=== PATIENT | female | born 1995 | race Caucasian/White ===

== ENCOUNTER 2020-02-02 13:55 | Emergency (ER) | payer SELFPAY ==
[~2020-02-02] VITALS: Ht 170.2 cm; Wt 60.8 kg
[2020-02-02 14:01] VITALS: BP 124/78
--- NOTE | 2020-02-02 14:06 | NUR ---
24/F c/o RLQ, LLQ, THEN RADIATING UP TO EPIGASTRIUM X 3 DAYS WITH N/V. ALSO PAIN IN MID BACK BILATERALLY. DENIES DIARRHEA. LBM TODAY, NORMAL CONSISTENCY BUT STATES WAS CONSTIPATED PRIOR TO BM TODAY. DENIES FEVER. PAIN 8/10, BLOATING SENSATION medhx: asthma
--- NOTE | 2020-02-02 14:10 | NUR ---
DR. GARCIA EVALUATING PT AT BEDSIDE
[2020-02-02] MEDS ORDERED: ONDANSETRON 4 MG/2 ML VIAL IVP ONE (14:25)
[2020-02-02] MEDS ORDERED: MORPHINE SULFATE 4 MG/ML SYR IVP ONE (14:25)
[2020-02-02 14:35] LABS: BASOPHILS % (AUTO) 0.4 % (0.0-2.0); EOSINOPHILS % (AUTO) 0.1 % (0.0-4.0); HEMATOCRIT 39.8 % (36-48); HEMOGLOBIN 12.9 g/dL (12.0-16.0); LYMPHOCYTES # (AUTO) 1.9 K/uL (2.5-16.5); LYMPHOCYTES % (AUTO) 14.8 % (20.5-51.1); MEAN CORPUSCULAR HEMOGLOBIN 30 pg (27-31); MEAN CORPUSCULAR HGB CONC 33 g/dL (33-37); MEAN CORPUSCULAR VOLUME 90.8 fL (80-94); MONOCYTES # (AUTO) 1.1 K/uL (0.8-1.0); MONOCYTES % (AUTO) 8.5 % (1.7-9.3); NEUTROPHILS # (AUTO) 9.7 K/uL (1.8-7.7); NEUTROPHILS % (AUTO) 76.2 % (42.2-75.2); PLATELET COUNT (AUTO) 242 K/uL (140-450); RED BLOOD CELL COUNT(AUTO) 4.38 MIL/uL (4.20-5.40); RED CELL DISTRIBUTION WIDTH 12.5 % (11.6-13.7); WHITE BLOOD COUNT (AUTO) 12.7 K/uL (4.8-10.8)
[2020-02-02 14:55] LABS: ALBUMIN 4.5 g/dL (3.4-5.0); ANION GAP 16.6 (8-16); CARBON DIOXIDE 25.1 mmol/L (21-32); CREATININE 0.8 mg/dL (0.6-1.3); POTASSIUM 3.7 mmol/L (3.5-5.1); TOTAL BILIRUBIN 1.3 mg/dL (0.0-1.0)
--- NOTE | 2020-02-02 15:08 | NUR ---
PT BACK TO BED 04 VIA W/C FROM CT SCAN
--- NOTE | 2020-02-02 16:09 | NUR ---
DR. GARCIA SPEAKING W/ PT AT BEDSIDE
[2020-02-02 16:18] VITALS: BP 111/81
--- NOTE | 2020-02-02 16:18 | NUR ---
Patient discharged with v/s stable. Written and verbal after care instructions given and explained. Patient alert, oriented and verbalized understanding of instructions. Ambulatory with steady gait. All questions addressed prior to discharge. ID band removed. Patient advised to follow up with PMD. Rx of Miralax Powder given. Patient educated on indication of medication including possible reaction and side effects. Opportunity to ask questions provided and answered.
== END 2020-02-02 16:18 | disposition home or self-care (01) ==
LOC: MED 13:55
DX: K59.00 Constipation, unspecified (principal)
CPT/HCPCS: 36415; 74176; 80053; 81002; 81025; 83690; 85025; 96374; 96375; 99284; J2270; J2405

== ENCOUNTER 2020-07-18 11:05 | Emergency (ER) | payer SELFPAY ==
[~2020-07-18] VITALS: Ht 170.2 cm; Wt 63.5 kg
[2020-07-18 11:08] VITALS: BP 113/73
--- NOTE | 2020-07-18 11:11 | NUR ---
Patient given urine cup and ambulated to lobby
[2020-07-18 11:50] LABS: BASOPHILS # (AUTO) 0.1 K/uL (0.00-0.22); BASOPHILS % (AUTO) 0.8 % (0.0-2.0); EOSINOPHILS # (AUTO) 0.1 K/uL (0-0.4); EOSINOPHILS % (AUTO) 0.5 % (0.0-4.0); HEMATOCRIT 38.5 % (36-48); HEMOGLOBIN 12.9 g/dL (12.0-16.0); LYMPHOCYTES # (AUTO) 1.7 K/uL (2.5-16.5); LYMPHOCYTES % (AUTO) 17.4 % (20.5-51.1); MEAN CORPUSCULAR HEMOGLOBIN 30 pg (27-31); MEAN CORPUSCULAR HGB CONC 34 g/dL (33-37); MEAN CORPUSCULAR VOLUME 88.4 fL (80-94); MONOCYTES # (AUTO) 0.5 K/uL (0.8-1.0); MONOCYTES % (AUTO) 5.3 % (1.7-9.3); NEUTROPHILS # (AUTO) 7.3 K/uL (1.8-7.7); PLATELET COUNT (AUTO) 247 K/uL (140-450); RED BLOOD CELL COUNT(AUTO) 4.36 MIL/uL (4.20-5.40); RED CELL DISTRIBUTION WIDTH 12.4 % (11.6-13.7); WHITE BLOOD COUNT (AUTO) 9.6 K/uL (4.8-10.8)
[2020-07-18 11:59] LABS: CREATININE 0.6 mg/dL (0.6-1.3); POTASSIUM 4.1 mmol/L (3.5-5.1)
[2020-07-18 12:40] LABS: ANION GAP 16.1 (8-16)
--- NOTE | 2020-07-18 13:02 | NUR ---
PT TAKEN TO BED 11.
[2020-07-18 13:14] LABS: APPEARANCE,URINE CLEAR (CLEAR); BILIRUBIN,URINE NEGATIVE (NEGATIVE); BLOOD, URINE NEGATIVE (NEGATIVE); COLOR,URINE YELLOW (YELLOW); LEUKOCYTE ESTERASE ,URINE NEGATIVE (NEGATIVE); NITRITE, URINE NEGATIVE (NEGATIVE); UGLUCOSE NEGATIVE (NEGATIVE)
[2020-07-18] MEDS: NACL 0.9% 1,000 ML IV ONE (13:14)
--- NOTE | 2020-07-18 13:24 | NUR ---
Received care of pt @1302 c/o cramp-like abdominal pain with nausea & vomiting x 2 days, with no PMH, NKA, 6 weeks IUP.
[2020-07-18 14:49] VITALS: BP 113/73
--- NOTE | 2020-07-18 14:50 | NUR ---
Patient discharged with v/s stable. Written and verbal after care instructions given and explained. Patient verbalized understanding. Ambulatory with steady gait. All questions addressed prior to discharge. Advised to follow up with PMD.
--- NOTE | 2020-07-20 08:46 | NUR ---
LATE ENTRY -- NORMAL SALINE INFUSION COMPLETED AT 1414
== END 2020-07-18 14:50 | disposition home or self-care (01) ==
LOC: MED 11:05
DX: O99.611 Diseases of the digestive system complicating pregnancy, first trimester (principal); O21.9 Vomiting of pregnancy, unspecified; K92.9 Disease of digestive system, unspecified; Z3A.08 8 weeks gestation of pregnancy; J45.909 Unspecified asthma, uncomplicated
CPT/HCPCS: 36415; 76801; 80048; 81003; 81025; 84702; 85025; 86900; 86901; 96360; 99284; J7030

== ENCOUNTER 2020-07-22 11:25 | Emergency (ER) | payer MEDICAID ==
[~2020-07-22] VITALS: Ht 165.1 cm; Wt 62.6 kg
[2020-07-22 11:29] VITALS: BP 122/87
--- NOTE | 2020-07-22 11:53 | NUR ---
25 Y/O FEMALE C/O UPPER ABDOMINAL PAIN IN BOTH UPPER QUADRANTS. 4X BOWEL SOUNDS NORMOACTIVE. PAIN STARTED 2 WEEKS AGO, ACCOMPAINIED WITH N/V. LAST MEAL WAS LAST NIGHT, HAS NOT BEEN ABLE TO EAT AT ALL TODAY. CONSISTENT N/V. 6 WEEKS PREGNENT . NO VAGINAL BLEEDING. NO RELATED MEDICAL HX, NKDA. NO SOB, COUGH, CHEST PAIN, OTHER SYMTPOMS OF COVID.
[2020-07-22] MEDS ORDERED: NACL 0.9% 1,000 ML IV SCH (12:05)
[2020-07-22] MEDS ORDERED: ONDANSETRON 4 MG/2 ML VIAL IVP ONE (12:05)
[2020-07-22 12:35] LABS: BASOPHILS # (AUTO) 0.1 K/uL (0.00-0.22); BASOPHILS % (AUTO) 0.6 % (0.0-2.0); EOSINOPHILS % (AUTO) 0.4 % (0.0-4.0); HEMATOCRIT 35.9 % (36-48); HEMOGLOBIN 12.1 g/dL (12.0-16.0); LYMPHOCYTES # (AUTO) 2.2 K/uL (2.5-16.5); MEAN CORPUSCULAR HEMOGLOBIN 29 pg (27-31); MEAN CORPUSCULAR HGB CONC 34 g/dL (33-37); MEAN CORPUSCULAR VOLUME 87.2 fL (80-94); MONOCYTES # (AUTO) 0.6 K/uL (0.8-1.0); MONOCYTES % (AUTO) 5.4 % (1.7-9.3); NEUTROPHILS # (AUTO) 9.1 K/uL (1.8-7.7); NEUTROPHILS % (AUTO) 75.6 % (42.2-75.2); PLATELET COUNT (AUTO) 255 K/uL (140-450); RED BLOOD CELL COUNT(AUTO) 4.11 MIL/uL (4.20-5.40); RED CELL DISTRIBUTION WIDTH 12.4 % (11.6-13.7)
[2020-07-22 12:36] LABS: APPEARANCE,URINE CLEAR (CLEAR); BILIRUBIN,URINE NEGATIVE (NEGATIVE); BLOOD, URINE NEGATIVE (NEGATIVE); COLOR,URINE YELLOW (YELLOW); LEUKOCYTE ESTERASE ,URINE NEGATIVE (NEGATIVE); NITRITE, URINE NEGATIVE (NEGATIVE); UGLUCOSE NEGATIVE (NEGATIVE)
[2020-07-22 12:49] LABS: ALBUMIN 4.3 g/dL (3.4-5.0); ANION GAP 14.7 (8-16); CARBON DIOXIDE 23.3 mmol/L (21-32); CREATININE 0.6 mg/dL (0.6-1.3); TOTAL BILIRUBIN 0.8 mg/dL (0.0-1.0)
[2020-07-22 14:15] VITALS: BP 122/87
--- NOTE | 2020-07-22 14:15 | NUR ---
Patient discharged with v/s stable. Written and verbal after care instructions given and explained. Patient alert, oriented and verbalized understanding of instructions. Ambulatory with steady gait. All questions addressed prior to discharge. ID band removed. Patient advised to follow up with PMD. Rx of ZOFRAN, MACROBID, DICLEGIS given. Patient educated on indication of medication including possible reaction and side effects. Opportunity to ask questions provided and answered.
== END 2020-07-22 14:15 | disposition home or self-care (01) ==
LOC: MED 11:25
DX: O21.0 Mild hyperemesis gravidarum (principal); J45.909 Unspecified asthma, uncomplicated; Z3A.01 Less than 8 weeks gestation of pregnancy
CPT/HCPCS: 36415; 76705; 80053; 81003; 83690; 85025; 96361; 96374; 99284; J2405; J7030

== ENCOUNTER 2020-08-06 12:25 | Emergency (ER) | payer MEDICAID ==
[~2020-08-06] VITALS: Ht 165.1 cm; Wt 72.6 kg
[2020-08-06 12:30] VITALS: BP 117/70
--- NOTE | 2020-08-06 12:40 | NUR ---
Patient to bed 12. RN evaluating the patient at bedside.
--- NOTE | 2020-08-06 12:45 | NUR ---
25 YO F BIB SELF FOR C/C OF EPIGASTRIC PAIN AND N/V X4 WEEKS. PT IS 8 WEEKS , G4,P2,A1 WITH AN SHEYLA OF 03/16/21. PT DENIES VAGINAL BLEEDING, REPORTS DIZZINESS. BED LOCKED AND IN LOWEST POSITION. SIDE RAILS X1. MED HX: ASTHMA
--- NOTE | 2020-08-06 12:53 | NUR ---
Dr George at bedside examining patient
[2020-08-06] MEDS ORDERED: NACL 0.9% 1,000 ML IV ONE ×2 (13:10→14:40)
--- NOTE | 2020-08-06 13:25 | NUR ---
PT REQUESTING MEDICATION FOR N/V. ERMD MADE AWARE
[2020-08-06 13:29] LABS: BASOPHILS # (AUTO) 0.1 K/uL (0.00-0.22); BASOPHILS % (AUTO) 0.5 % (0.0-2.0); EOSINOPHILS # (AUTO) 0.1 K/uL (0-0.4); EOSINOPHILS % (AUTO) 0.5 % (0.0-4.0); HEMATOCRIT 36.1 % (36-48); HEMOGLOBIN 12.3 g/dL (12.0-16.0); LYMPHOCYTES # (AUTO) 1.9 K/uL (2.5-16.5); LYMPHOCYTES % (AUTO) 14.9 % (20.5-51.1); MEAN CORPUSCULAR HEMOGLOBIN 30 pg (27-31); MEAN CORPUSCULAR HGB CONC 34 g/dL (33-37); MEAN CORPUSCULAR VOLUME 86.5 fL (80-94); MONOCYTES # (AUTO) 0.6 K/uL (0.8-1.0); MONOCYTES % (AUTO) 4.5 % (1.7-9.3); NEUTROPHILS # (AUTO) 10.2 K/uL (1.8-7.7); NEUTROPHILS % (AUTO) 79.6 % (42.2-75.2); PLATELET COUNT (AUTO) 277 K/uL (140-450); RED BLOOD CELL COUNT(AUTO) 4.17 MIL/uL (4.20-5.40); RED CELL DISTRIBUTION WIDTH 12.5 % (11.6-13.7); WHITE BLOOD COUNT (AUTO) 12.9 K/uL (4.8-10.8)
[2020-08-06] MEDS ORDERED: METOCLOPRAMIDE 10 MG/2 ML INJ VIAL IVP ONE ×2 (13:30→14:40)
[2020-08-06 13:44] LABS: ALBUMIN 4.4 g/dL (3.4-5.0); ANION GAP 12.6 (8-16); CARBON DIOXIDE 25.5 mmol/L (21-32); CREATININE 0.6 mg/dL (0.6-1.3); POTASSIUM 4.1 mmol/L (3.5-5.1); TOTAL BILIRUBIN 0.7 mg/dL (0.0-1.0)
--- NOTE | 2020-08-06 14:40 | NUR ---
PT AMBULATED TO WITH STEADY GAIT.
[2020-08-06 15:40] VITALS: BP 108/64
--- NOTE | 2020-08-06 15:40 | NUR ---
Patient discharged with v/s stable. Written and verbal after care instructions given and explained. Patient alert, oriented and verbalized understanding of instructions. Ambulatory with steady gait. All questions addressed prior to discharge. ID band removed. Patient advised to follow up with PMD. Rx of REGLAN given. Patient educated on indication of medication including possible reaction and side effects. Opportunity to ask questions provided and answered.
== END 2020-08-06 15:40 | disposition home or self-care (01) ==
LOC: MED 12:25
DX: O21.9 Vomiting of pregnancy, unspecified (principal); O26.891 Other specified pregnancy related conditions, first trimester; R10.13 Epigastric pain; E86.0 Dehydration; J45.909 Unspecified asthma, uncomplicated; Z3A.01 Less than 8 weeks gestation of pregnancy
CPT/HCPCS: 36415; 80053; 81002; 81025; 83690; 85025; 96361; 96374; 96376; 99284; J2765; J7030